=== PATIENT | male | born 1985 | race African-American/Black ===

== ENCOUNTER 2018-11-05 08:34 | Emergency (ER) | payer OTHER ==
[2018-11-05] MEDS: IBUPROFEN 600 MG TAB PO (09:30)
== END 2018-11-05 10:43 | disposition home or self-care (01) ==
LOC: FTE 10:43
DX: S19.9XXA Unspecified injury of neck, initial encounter (principal); V03.10XA Pedestrian on foot injured in collision with car, pick-up truck or van in traffic accident, initial encounter
CPT/HCPCS: 72040; 99283-25